=== PATIENT | female | born 1945 | race Caucasian/White ===

== ENCOUNTER 2017-11-14 10:04 | Emergency (ER) | payer MEDICAID ==
[2017-11-14] MEDS: traMADol 50 MG TAB PO (11:24)
[2017-11-14] MEDS: IBUPROFEN 200 MG TAB PO (11:25)
== END 2017-11-14 13:58 | disposition home or self-care (01) ==
LOC: FTE 10:04
DX: M54.5 Low back pain (principal); E11.9 Type 2 diabetes mellitus without complications; Z79.84 Long term (current) use of oral hypoglycemic drugs
CPT/HCPCS: 72100; 99283-25